=== PATIENT | male | born 1990 ===

== ENCOUNTER 2017-02-14 22:31 | Emergency (ER) | payer OTHER ==
[~2017-02-14] VITALS: Ht 188 cm; Wt 87.5 kg
[2017-02-15] MEDS ORDERED: ZYNCOF 20-400120 ML PO (08:24)
[2017-02-15] MEDS ORDERED: OSEL75CA PO (08:24)
== END 2017-02-15 08:30 | disposition home or self-care (01) ==
LOC: ER 22:31
DX: J09.X2 Influenza due to identified novel influenza A virus with other respiratory manifestations (principal); R50.9 Fever, unspecified